=== PATIENT | female | born 2000 | race Caucasian/White ===

== ENCOUNTER 2023-12-13 02:09 | Emergency (ER) | payer MEDICAID ==
[~2023-12-13] VITALS: Ht 160 cm; Wt 75.0 kg
[2023-12-13 02:19] VITALS: O2SAT 100
[2023-12-13 02:48] LABS: BASOPHILS % 1.2 % (0.0-2.0); EOSINOPHILS % 3.9 % (0.0-5.0); HEMATOCRIT. 40.9 % (36.0-48.0); HEMOGLOBIN. 13.2 g/dL (12.0-16.0); LYMPHOCYTES % 33.5 % (20.0-50.0); MEAN CORPUSCULAR HEMOGLOBIN 28.1 pg (28.0-32.0); MEAN CORPUSCULAR HGB CONC 32.3 g/dL (31.0-37.0); MEAN CORPUSCULAR VOLUME 86.9 fL (81.0-99.0); MEAN PLATELET VOLUME 7.2 fl (7.4-10.4); NEUTROPHILS % 54.4 % (40.0-76.0); PLATELET 443 x1000/uL (130-400); RED BLOOD CELL COUNT 4.71 mill/uL (4.2-5.4); WHITE BLOOD COUNT 10.1 x1000/uL (4.5-11.0)
[2023-12-13 03:01] LABS: CHLORIDE 106 mEq/L (98-107); POTASSIUM 3.9 mEq/L (3.5-5.1); SODIUM 137 mEq/L (136-145)
[2023-12-13 03:02] LABS: CARBON DIOXIDE 26 mEq/L (21-32)
[2023-12-13 03:03] LABS: CALCIUM 9.5 mg/dL (8.7-10.4)
[2023-12-13 03:07] LABS: CREATININE 0.6 mg/dL (0.6-1.0)
[2023-12-13 03:08] LABS: GLUCOSE 97 mg/dL (70-105); UREA NITROGEN BLOOD 10 mg/dL (9-23)
[2023-12-13 03:44] LABS: TROPONIN I HIGH SENSITIVITY < 4 ng/L (3.0-34)
[2023-12-13] MEDS ORDERED: TOPUD PO (05:36)
[2023-12-13] MEDS: ACETAMINOPHEN 325MG TABLET PO ONE (06:02)
[2023-12-13 06:03] VITALS: BP 110/70; PULSE 82; RESP 18; TEMP 98.3
== END 2023-12-13 06:04 | disposition home or self-care (01) ==
LOC: ER 02:09
DX: R07.9 Chest pain, unspecified (principal); Z91.040 Latex allergy status
CPT/HCPCS: 36415; 71045; 80048; 84484; 85025; 93005; 99285

== ENCOUNTER 2024-06-22 13:32 | Emergency (ER) | payer MEDICAID ==
[~2024-06-22] VITALS: Ht 154.9 cm; Wt 78.0 kg
[~2024-06-22 13:32] MED LIST: TOPUD PO
[2024-06-22 13:36] VITALS: TEMP 98; O2SAT 99
[2024-06-22 13:37] VITALS: O2SAT 100
[2024-06-22] MEDS ORDERED: ACET-2708 MT (14:38)
[2024-06-22] MEDS ORDERED: LIDO700A15 TP (14:38)
[2024-06-22 16:00] VITALS: BP 110/71; PULSE 107; RESP 16
[2024-06-22] MEDS: IBUPROFEN 400MG TABLET PO ONE (16:00)
== END 2024-06-22 16:16 | disposition home or self-care (01) ==
LOC: ER 13:32
DX: M79.602 Pain in left arm (principal); Z91.041 Radiographic dye allergy status; Z88.8 Allergy status to other drugs, medicaments and biological substances
CPT/HCPCS: 81025; 99283